=== PATIENT | female | born 1995 | race Caucasian/White ===

== ENCOUNTER 2022-03-13 23:53 | Inpatient (IN) | payer OTHER, SELFPAY ==
[2022-03-14] VITALS (183 sets, daily range): BP systolic 89–145; BP diastolic 55–116; PULSE 55–152; RESP 18; TEMP 36.3–36.8; O2SAT 83–100; BMI 29.7
--- NOTE | 2022-03-14 00:19 | LDADM ---
This patient, Irena Ayala, was admitted to Labor/Delivery/Recovery 105 on 03/13/22 at 23:53. Plans for labor, pain management and were discussed with patient. Patient/family oriented to hospital policies and general routines including ID bracelet, bed and alarms, visiting hours, pain management, procedures, bathroom and other care routines, personal items, smoking policy, room service/diet and guest tray routines, security routines, and visiting hours. Patient/Family are encouraged to report perceived risks to care and to ask questions if they do not understand what they are told or what they should do. See OBIX for further documentation.
[2022-03-14] MEDS: ONDANSETRON INJ 4 MG/2 ML VIAL IV PUSH ×2 (00:39→09:07)
[2022-03-14] MEDS: AMPICILLIN 2 GM/NS 100 ML 2 GM/100 ML BAG IVPB (00:40)
[2022-03-14] MEDS: LACTATED RINGERS 1,000 ML 125 ML IV CONT ×3 (00:40→05:13)
[2022-03-14 00:41] LABS: Basophils Percent Auto 0.3 % (0.2-1.2); Eosinophils Percent Auto 0.2 % (0-4.4); Hematocrit 36.2 % (37.0-47.0); Hemoglobin 12.7 g/dL (12.0-15.0); Immature Granulocyte Absolute 0.12 K/mm3 (0.00-0.031); Immature Granulocyte Percent A 0.8 % (0-0.5); Lymphocytes Percent Auto 12.8 % (18.3-44.2); Mean Corpuscular HGB Conc 35.1 g/dl (32-36); Mean Corpuscular Hemoglobin 30.5 pg (26-34); Mean Corpuscular Volume 86.8 fl (80-100); Mean Platelet Volume 10.8 fl (7.4-10.4); Monocytes Percent Auto 6.7 % (2.6-8.5); Neutrophils Absolute Auto 11.8 K/mm3 (1.3-6.7); Neutrophils Percent Auto 79.2 % (45.5-73.1); Platelet Count Result 297 k/mm3 (150-375); Red Blood Count 4.17 M/mm3 (4.2-5.4); Red Cell Distribution Width 13.6 % (11.5-14.5); White Blood Count 14.9 K/mm3 (4.5-10.0)
--- NOTE | 2022-03-14 01:07 | PM.IMHP ---
H&P: HPI History of Present Illness Date/Time: 03/14/22 01:07 Chief Complaint: Leakage of fluid Narrative: 27 y/o G1 at 38 6/7 weeks who had leakage of brown fluid at 10:30 pm, with subsequent contractions and vomiting. RomPlus pos. GBS bacteruria. Review of Systems Review of Systems: All systems reviewed & are unremarkable except as noted in HPI and below PMFSH Past Medical History Medical History Anxiety Family History Family History Other Patient denies significant medical history Social History Social History Smoking status: Never smoker Second hand tobacco smoke exposure: No Substance use: never Lack of Transportation: No Lack of Food: Never True Current Housing: I Have Housing Concerned About Future Housing: No Difficulty Paying Gas/Electric Bills: No Difficulty Paying for Meds: No Currently Unemployed: No Education: Associate Degree Difficulty w/ Childcare or Family Care: No Spiritual care concerns: No Meds Home Medications and Allergies Home Medications Medication Instructions Recorded Confirmed Type ferrous sulfate 325 mg (65 mg 325 mg PO DAILY 02/22/22 02/22/22 History iron) tablet fluoxetine 20 mg tablet 20 mg PO DAILY 02/22/22 02/22/22 History ondansetron HCl 4 mg tablet 4 mg PO Q6H PRN Nausea 02/22/22 02/22/22 History prenat.vits,dottie,ngd-ycfk-arytj 2 tablet PO DAILY 02/22/22 02/22/22 History Allergies Allergy/AdvReac Type Severity Reaction Status Date / Time No Known Allergies Allergy Verified 02/22/22 13:40 Vital Signs Vital Signs - 24 hr 03/14/22 00:17 03/14/22 00:31 03/14/22 00:46 Pulse Rate 76 78 64 Blood Pressure 124/81 110/90 110/88 Oxygen Delivery 03/14/22 01:01 03/14/22 00:18 Pulse Rate 69 Blood Pressure 145/89 H Oxygen Delivery Room Air Exam Const: Orientation/consciousness: patient oriented x3 Other: Well-developed, well-nourished female in no acute distress. Neck: Thyroid: thyroid normal Lymphatic: no lymphadenopathy noted (in neck, axilla or inguinal nodes) Resp: Effort & Inspection: normal respiratory effort Auscultation: clear to auscultation bilaterally Cardio: Rate: regular rate Rhythm: regular rhythm Heart sounds: S1 normal heart sound present and S2 normal heart sound present GI: Other: ABD: Soft, nontender, gravid. NST 150 reactive, but with some decelerations with vomiting. : General: Yes no CVA tenderness Other: Cervix 1 cm on admission, now 3/100/-2. AROM forebag with meconium-stained fluid. Vertex. IUPC placed. Back/Spine/Pelvis: Back: no CVA tenderness Skin: General skin exam: normal color and no rashes or lesions noted Neuro: General: patient oriented x3 Extrem: Other: Extremities: nontender with no edema Psych: Mental Status: mental status grossly normal Affect: normal affect H&P: Results Labs Labs: Short CBC 03/14/22 Range/Units 00:27 WBC 14.9 H (4.5-10.0) K/mm3 Hgb 12.7 (12.0-15.0) g/dL Hct 36.2 L (37.0-47.0) % Plt Count 297 (150-375) k/mm3 Assessment and Plan Assessment and plan (1) Active labor at term: Status: Acute Assessment and Plan: A: IUP at 38 6/7 weeks with labor, meconium-stained fluid, GBS bacteruria. P: Ampicillin. IUPC placed. Expectant management. (2) GBS bacteriuria: Code(s): R82.71 - Bacteriuria Status: Acute
--- NOTE | 2022-03-14 01:39 | WPDANESEPP ---
Anes - Eval Pre Procedure Procedure: labor epidural Date/Time: 03/14/22 01:39 Pre Op Diagnosis: Contractions leaking Patient Data Age: 27 Gender: F Height: 1.55 m Weight: 71.5 kg Last Vital Signs Pulse 67 03/14/22 01:31 BP 119/98 H 03/14/22 01:31 O2 Del Method Room Air 03/14/22 00:18 Allergies Allergy/AdvReac Type Severity Reaction Status Date / Time No Known Allergies Allergy Verified 02/22/22 13:40 Home Medications Medication Instructions Recorded Confirmed Type ferrous sulfate 325 mg (65 mg 325 mg PO DAILY 02/22/22 02/22/22 History iron) tablet fluoxetine 20 mg tablet 20 mg PO DAILY 02/22/22 02/22/22 History ondansetron HCl 4 mg tablet 4 mg PO Q6H PRN Nausea 02/22/22 02/22/22 History prenat.vits,dottie,wed-zpoy-guffe 2 tablet PO DAILY 02/22/22 02/22/22 History Laboratory Tests 03/14/22 03/14/22 03/14/22 00:27 00:27 00:27 WBC 14.9 K/mm3 H K/mm3 (4.5-10.0) RBC 4.17 M/mm3 L M/mm3 (4.2-5.4) Hgb 12.7 g/dL g/dL (12.0-15.0) Hct 36.2 % L % (37.0-47.0) MCV 86.8 fl fl (80-100) MCH 30.5 pg pg (26-34) MCHC 35.1 g/dl g/dl (32-36) RDW 13.6 % % (11.5-14.5) Plt Count 297 k/mm3 k/mm3 (150-375) MPV 10.8 fl H fl (7.4-10.4) Immature Gran % (Auto) 0.8 % H % (0-0.5) Neut % (Auto) 79.2 % H % (45.5-73.1) Lymph % (Auto) 12.8 % L % (18.3-44.2) [place] % (Auto) 6.7 % % (2.6-8.5) Eos % (Auto) 0.2 % % (0-4.4) Baso % (Auto) 0.3 % % (0.2-1.2) Lymph # (Auto) 1.90 K/mm3 K/mm3 (0.9-3.2) [place] # (Auto) 1.0 K/mm3 H K/mm3 (0.1-0.6) Eos # (Auto) 0.0 K/mm3 K/mm3 (0-0.3) Baso # (Auto) 0.0 K/mm3 K/mm3 (0.0-0.1) Abs Immat Gran (auto) 0.12 K/mm3 H K/mm3 (0.00-0.031) Absolute Neuts (auto) 11.8 K/mm3 H K/mm3 (1.3-6.7) Absolute Nucleated RBC 0.0 K/mm3 K/mm3 (0.0-0.012) Nucleated RBC % 0.0 % % (0.0-0.2) RPR Pending Blood Type B Positive Antibody Screen Negative Patient hx anesthesia problems: none Family hx anesthesia problems: none Results Review: All pre-operative results and documents have been reviewed as part of the pre-operative evaluation. [facility] Past Medical History Medical History Anxiety Family History Family History Other Patient denies significant medical history Social History Social History Smoking status: Never smoker Second hand tobacco smoke exposure: No Substance use: never Lack of Transportation: No Lack of Food: Never True Current Housing: I Have Housing Concerned About Future Housing: No Difficulty Paying Gas/Electric Bills: No Difficulty Paying for Meds: No Currently Unemployed: No Education: Associate Degree Difficulty w/ Childcare or Family Care: No Spiritual care concerns: No Exam Day of Procedure 03/14/22 01:39 Patient weight: overweight Heart: regular rate and rhythm Lungs: normal air movement Airway: Mallampati scale Neurological: alert and oriented
[2022-03-14 04:22] LABS: Amphetamine Screen Urine Negative (Negative); Barbiturate Screen Urine Negative (Negative); Benzodiazepines Screen Urine Negative (Negative); Cannabinoid Screen Urine Positive (Negative); Cocaine Screen Urine Negative (Negative); Methadone Screen Urine Negative (Negative); Opiate Screen Urine Negative (Negative); Phencyclidine Screen Urine Negative (Negative)
[2022-03-14] MEDS: AMPICILLIN 1 GM/NS 50 ML 1 GM/50 ML BAG IVPB ×2 (05:13→09:02)
[2022-03-14 06:37] LABS: Rapid Plasma Reagin Non-Reactive (NonReactive)
[2022-03-14] MEDS: OXYTOCIN 30 UNITS/NS 500 ML 30 UNITS/500 ML BAG IV CONT (07:56)
--- NOTE | 2022-03-14 08:12 | PM.OBPNLAB ---
Pain Control Date/time seen: 03/14/22 08:12 Comfortable with epidural. AVSS NST reactive TOCO: contractions every 3-4 min Cervix 5/-1 Augment labor with oxytocin as needed. Continue labor.
[2022-03-14] MEDS: FAMOTIDINE 20 MG/2 ML VIAL IV PUSH (11:34)
--- NOTE | 2022-03-14 14:52 | P.PCNOB_ITS ---
OB - Delivery Note Procedure Delivery date: 03/14/22 Procedure: Vacuum assisted vaginal delivery Events: Positive Group B Strep (GBS) Induction method: None Delivery augmentation: Pitocin Delivery monitor: External FHT, External Uterine and Internal Uterine Route of delivery: vacuum extraction Laceration Description: Perineal - 2nd Degree Delivery repair: vicryl (3-0) Quantitative Blood Loss (ml): 420 Anesthesia type: Epidural Disposition: PACU Complications: None Narrative: 27 y/o G1 at 38 6/7 weeks gestation who presented to the hospital with leakage of fluid. SROM with meconium-stained fluid was noted. She received ampicillin IV for GBS bacteruria. She received an epidural for pain control. Oxytocin was administered intravenously for augmentation of labor. Her labor progressed and her cervix dilated completely. She pushed and brought the vertex to the +2 of 3 station, in persistent ROP position. After more than two hours of pushing, with minimal additional descent, I offered vacuum assisted vaginal delivery vs . We reviewed risks / benefits / alternatives, and she opted to pursue VAVD. The Kiwi vacuum suction cup was applied to the vertex using the Dreifingergriff. The first device was unable to attain proper suction and was discarded. A second device was found to function normally. Over three contractions, and with one pop-off, the infant's head was gently flexed while the patient pushed with good effort. The head descended, rotated to the KELLEN position and delivered to the perineum. Delivery of the body followed. The nose and mouth were bulb suctioned. After a delay, the cord was clamped and cut. The was handed off the field. Cord blood was collected. The placenta delivered spontaneously and was grossly normal in appearance. The usual 3 vessel cord was noted. A second degree midline perineal laceration was sustained. This was reapproximated using 3 0 Vicryl in the usual layered fashion. Excellent hemostasis resulted as did excellent reapproximation of the normal anatomy. Needle and instrument counts were correct. The patient was taken to recovery room in stable condition. The went to the nursery in stable condition. I was present and scrubbed for the entire delivery. [place] Baby Date of : 03/14/22 Time of : 14:40 Weeks of gestation at delivery: 38 gender: Male Weight (pounds): 6 Weight (ounces): 14 presentation: vertex position: Right Occiput Posterior Placenta delivery description: Spontaneous and Normal Configuration Cord Vessel Description: 3 Vessels and Delayed Cord Clamping score one minute: 6 score five minutes: 9
[2022-03-14] MEDS: BENZOCAINE 20% AER SPR (*SP) 56 GM CAN 1 SPRAY TOPICAL (17:17)
[2022-03-14] MEDS: WITCH HAZEL 40 PADS 1 PAD TOPICAL (17:17)
--- NOTE | 2022-03-14 19:13 | PC.NURSE ---
Patient transferred to post room #291 per wheelchair from labor and delivery. Support person present. Oriented to unit, room, information board, rooming in, admission packet and security measures. Patient verbalizes understanding.
--- NOTE | 2022-03-14 20:52 | PM.OBDSVD ---
DS: Admitting Diagnosis Discharge Date 03/13/22 Admitting Diagnosis IUP at 38 6/7 weeks SROM GBS bacteruria DS: Discharge Diagnosis Discharge Diagnosis (1) GBS bacteriuria: Code(s): R82.71 - Bacteriuria Status: Acute (2) Active labor at term: Status: Acute OB - DS: Summary OB Procedures : None OB Procedures Intrapartum: Vacuum extraction OB Procedures: : None Time Spent with Patient Time attestation: Total time spent providing and/or coordinating discharge services: DS: Data Data Completed and Pending Labs on day of discharge: Labs from last 24 hours 03/14/22 03/14/22 03/14/22 03:51 00:27 00:27 WBC RBC Hgb Hct MCV MCH MCHC RDW Plt Count MPV Immature Gran % (Auto) Neut % (Auto) Lymph % (Auto) [place] % (Auto) Eos % (Auto) Baso % (Auto) Lymph # (Auto) [place] # (Auto) Eos # (Auto) Baso # (Auto) Abs Immat Gran (auto) Absolute Neuts (auto) Absolute Nucleated RBC Nucleated RBC % Urine Opiates Screen Negative Urine Methadone Screen Negative Ur Barbiturates Screen Negative Ur Phencyclidine Scrn Negative Ur Amphetamine Screen Negative U Benzodiazepines Scrn Negative Urine Cocaine Screen Negative U Cannabinoids Screen Positive A RPR Non-reactive Blood Type B Positive Antibody Screen Negative 03/14/22 00:27 WBC 14.9 H RBC 4.17 L Hgb 12.7 Hct 36.2 L MCV 86.8 MCH 30.5 MCHC 35.1 RDW 13.6 Plt Count 297 MPV 10.8 H Immature Gran % (Auto) 0.8 H Neut % (Auto) 79.2 H Lymph % (Auto) 12.8 L [place] % (Auto) 6.7 Eos % (Auto) 0.2 Baso % (Auto) 0.3 Lymph # (Auto) 1.90 [place] # (Auto) 1.0 H Eos # (Auto) 0.0 Baso # (Auto) 0.0 Abs Immat Gran (auto) 0.12 H Absolute Neuts (auto) 11.8 H Absolute Nucleated RBC 0.0 Nucleated RBC % 0.0 Urine Opiates Screen Urine Methadone Screen Ur Barbiturates Screen Ur Phencyclidine Scrn Ur Amphetamine Screen U Benzodiazepines Scrn Urine Cocaine Screen U Cannabinoids Screen RPR Blood Type Antibody Screen Discharge Plan Discharge Attending physician on discharge: Duc Ingram Consulting providers: Jennifer Gusman ; Xochitl Marcano Discharging Clinician: Duc Ingram Patient Disposition: Home, Self-Care Activity: pelvic rest Diet: regular Discharge Instructions: Education: Mom and Baby Guide Given to: Mother Follow-Up: Call your delivering provider's office for an appointment to be seen in: 6 Weeks Mom and baby should come to the [facility] for the follow-up appointment. Appointment Date/Time: March 17, 2022 at 9:00 am What to expect at your follow-up visit: Blood Pressure Check Physical Assessment Call [phone] if you are unable to keep your appointment time. BREAST CARE: * Wear a snug supportive bra. * For engorgement discomfort: Breast Feeding: * Apply warm moist washcloths * Express milk as needed to relieve engorgement * Wear loose clothing Bottle Feeding: * May apply ice packs * For sore nipples: * Identify correct latch-on * Apply warm moist washcloths before and after nursing * Air dry nipples after nursing * May apply Lansinoh cream to nipples EPISIOTOMY/PERINEAL CARE: * Until bleeding stops, use your meghan bottle after urinating * Change your pad frequently throughout the day * You may take sitz baths several times a day (fill your bathtub with warm water and soak for 20 minutes.) Do NOT bathe in the water * No tub baths until seen by your physician - You may shower ACTIVITY: * Rest as much as possible. * Do not exercise or lift anything heavier than your baby (such as laundry or other children.) * Avoid stairs or driving as much as possible. * Do not put anything into the vagina. No douching, tampons, or sexual activity until seen by physicia
[2022-03-15] MEDS: IBUPROFEN 600 MG TABLET PO ×2 (03:44→12:33)
[2022-03-15 03:57] VITALS: BP 102/62; PULSE 78; RESP 17; TEMP 36.6; O2SAT 98
--- NOTE | 2022-03-15 06:10 | PM.OBPNVD ---
OB - PN: Subj Subjective Date/time seen: 03/15/22 06:10 Patient comments: no complaints and pain well controlled baby status: doing well OB - PN: Obj Data Labs CBC & Chem 7: 03/15/22 03:41 Labs: Laboratory Results - last 24 hr 03/14/22 03/15/22 00:27 03:41 Hgb 11.0 L Hct 33.0 L RPR Non-reactive OB - PN A/P Plan day: 1 Plan: routine care Time Spent With Patient Time: Total time spent is greater than 50% in coordination of care (as documented) at patient's floor/unit and/or counseling patient: Time with patient: less than 15 minutes Exam Const: General: cooperative, healthy appearing and comfortable Orientation/consciousness: oriented to person, oriented to place and oriented to time HENMT: Head: normal to inspection Resp: Effort & Inspection: normal respiratory effort GI: Inspection: normal to inspection (Fundus firm below the umbilicus)
[2022-03-15] MEDS: MULTIVIT/MIN/PREN/FOL AC/IRON TABLET 1 TAB PO (07:36)
[2022-03-15] MEDS: DOCUSATE SODIUM 100 MG CAPSULE PO (07:36)
[2022-03-15] MEDS: FLUoxetine HCL 20 MG CAPSULE PO (07:36)
[2022-03-15 08:00] VITALS: BP 109/69; PULSE 74; RESP 16; TEMP 36.8; O2SAT 97
--- NOTE | 2022-03-15 10:50 | WPDANLDPN2 ---
Anes-Prog Note L&D Date/Time: 03/15/22 10:50 Comfortable throughout: labor and delivery Neuraxial method: epidural Epidural/Spinal procedure site: clean & non-tender Neuro status: Neuro function grossly intact. Cardiovascular status: normal Respiratory status: normal Airway patency: baseline Mental status: baseline Post-Op hydration status: normal Vital Signs: Last Vital Signs Temp 36.8 C 03/15/22 08:00 Pulse 74 03/15/22 08:00 Resp 16 03/15/22 08:00 BP 109/69 03/15/22 08:00 Pulse Ox 97 03/15/22 08:00 O2 Del Method Room Air 03/15/22 07:44 Pain score (VAS): 05/01 I/O: Intake & Output 03/14/22 03/15/22 03/15/22 23:59 07:59 15:59 Intake Total 0 Balance 0 Post-procedural complaints: none Patient feedback: Patient satisfied with anesthetic care.
[2022-03-15 11:28] VITALS: BP 119/73; PULSE 83; RESP 18; TEMP 36.4; O2SAT 99
[2022-03-15] MEDS: ACETAMINOPHEN 325 MG TABLET 650 MG PO (12:34)
[2022-03-15 15:53] VITALS: BP 110/71; PULSE 76; RESP 18; TEMP 36.6; O2SAT 96
[2022-03-15 19:33] VITALS: BP 121/85; PULSE 73; RESP 18; TEMP 36.9; O2SAT 99
--- NOTE | 2022-03-16 05:37 | PC.NURSE ---
Mariaa Martines RN charted on this patient from 1800 03/15/22 - 0600 03/16/22
--- NOTE | 2022-03-16 06:24 | P.PNOB_ITS ---
OB - PN: Subj Subjective Date/time seen: 03/16/22 06:24 Patient comments: no complaints and pain well controlled baby status: doing well OB - PN: Obj Data Labs CBC & Chem 7: 03/15/22 03:41 OB - PN A/P Plan day: 2 Plan: routine care, discharge home and follow up 6 weeks Time Spent With Patient Time: Total time spent is greater than 50% in coordination of care (as documented) at patient's floor/unit and/or counseling patient: Time with patient: less than 15 minutes Exam 2 Const: General: cooperative, healthy appearing, comfortable and well groomed Orientation/consciousness: oriented to person, oriented to place and oriented to time Resp: Effort & Inspection: normal respiratory effort GI: Inspection: normal to inspection (Fundus firm below the umbilicus)
[2022-03-16 08:20] VITALS: BP 111/82; PULSE 63; RESP 18; TEMP 36.6; O2SAT 98
[2022-03-16] MEDS: ACETAMINOPHEN 325 MG TABLET 650 MG PO (08:45)
[2022-03-16] MEDS: FLUoxetine HCL 20 MG CAPSULE PO (08:45)
[2022-03-16] MEDS: MULTIVIT/MIN/PREN/FOL AC/IRON TABLET 1 TAB PO (08:45)
[2022-03-16] MEDS: DOCUSATE SODIUM 100 MG CAPSULE PO (08:45)
--- NOTE | 2022-03-16 11:48 | PC.NURSE ---
Patient viewed the discharge video Mother & Baby Care, The First Two Weeks . Patient was given the opportunity and encouraged to ask questions. Patient verbalized understanding of information shared and has been given the mother/baby guide for home reference.
[2022-03-17 09:30] VITALS: BP 116/81; PULSE 65; RESP 20; TEMP 37.2; O2SAT 99
== END 2022-03-16 13:15 | disposition home or self-care (01) | DRG 807 ==
LOC: ANHLDR 03-14 09:04 → ANHOB2 03-14 20:54 → ANHLDR 03-19 11:22 → ANHOB2 03-19 11:22
PROVIDERS: Admitting Provider Obstetrics & Gynecology; Visit Provider Obstetrics & Gynecology
DX: O99.824 Streptococcus B carrier state complicating childbirth (principal); Z37.0 Single live birth; Z3A.38 38 weeks gestation of pregnancy; O36.8330 Maternal care for abnormalities of the fetal heart rate or rhythm, third trimester, not applicable or unspecified; O70.1 Second degree perineal laceration during delivery; O77.0 Labor and delivery complicated by meconium in amniotic fluid; O99.344 Other mental disorders complicating childbirth; F41.9 Anxiety disorder, unspecified
CPT/HCPCS: 36415; 80307; 84112; 85014; 85018; 85025; 86592; 86850; 86900; 86901; 88307; A9270; J0290; J2405; J2590; J2795; J7120

== ENCOUNTER 2024-08-11 03:43 | Day surgery (SDC) | payer OTHER, SELFPAY ==
[2024-08-07 14:06] VITALS: BMI 25.0
--- OUTSIDE RECORDS SUMMARY | 2024-08-11 03:46 | XMS_ITS | Encounter Summary ---
Author Organization [facility] Address [address] [place] [address] Care Team Providers Care Log Chipper Name Role Phone Unavailable Primary Care Provider Unavailabl e Encounter Details Date Type Department Care Team (Late st Contact Info) Description 05/13/2023 Initial consult [facility] [address] [place] [address] [phone] Vanessa Bridges MD [address] [place] [phone] Social History Tobacco Use Types Packs/Day Years Used Date Smoking Tobacco: Never Smokeless Tobacco: Never Alcohol Use Standard Drinks/Week Comments No 0 (1 standard drink = 0.6 oz pur e alcohol) AUDIT-C Answer Date Recorded Q1: How often do you have a drink containing alcohol? Never 03/15/2023 Q2: How many drinks containi ng alcohol do you have on a typical day when you are drinking? Patient does not drink Q3: How often do you have si x or more drinks on one occasion? Never 03/15/2023 Overall Financial Resource Strain (CARDIA) Answe r Date Recorded How hard is it for you to pa y for the very basics like food, housing, medical care, and heating? Not very hard 03/20/2023 [facility] [facility] - Occupational Stress Questionnaire Answer Date Recorded Do you feel stress - tense, restless, nervous, or anxious, or unable to sleep at night because your mind is troubled all the time - these days? Only a little 03/20/2023 Hunger Vital Sign Answer Date Recorded Within the past 12 months, y ou worried that your food would run out before you got the money to buy more. Never true 03/20/20 23 Within the past 12 months, t he food you bought just didn't last and you didn't have money to get more. Never true 03/20/2023 PRAPARE - Transportation Answer Date Re corded In the past 12 months, has l ack of transportation kept you from medical appointments or from getting medications? No 02/21 In the past 12 months, has l ack of transportation kept you from meetings, work, or from getting things needed for daily living? No 03/20/2023 Housing Stability Vital Sign Answer Steve e Recorded In the last 12 months, was t here a time when you were not able to pay the mortgage or rent on time? No 03/20/2023 In the last 12 months, how many places have you lived? 1 03/20/2023 In the last 12 months, was t here a time when you did not have a steady place to sleep or slept in a senior living (including now)? No 03/20/2023 [place] Depression Scale Answer Date Recorded [place] Depression Scale Total 5 05/06/2023 The thought of harming myself has occurred to me . 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
--- OUTSIDE RECORDS SUMMARY | 2024-08-11 03:46 | XMS_ITS | Continuity of Care Document ---
Author Organization [facility] Address [address] [place] [id number] Phone Care Team Providers Care Garageman Name Role Phone Ed Billy Unavailable Unavailable Advance Directives Directive Yes / No Effective Date File Name No Information Encounters Encounter Description Practice Location Reason(s) For Visit Diagnoses Date Provider Providers Copied on Encounter [facility], [address] [place] [address], [facility], tel:[phone] *[facility] No Information Wenceslao Ward. [address] [place] [address], [facility], . tel:[phone] Family History Family Member Type Diagnosis Age At Onset No Information Payers Payer name Insurance type Covered green party ID Authoriza tion(s) No Information Social History Type Description Quantity Date Captured Comments Sex Unknown Smoking Status No Information Chief Complaint And Reason For Visit No Information Reason For Referral Reason For Referral No Information History Of Present Illness Encounter Date Complaint History Of Prese nt Illness No Information Functional Status Date Functional Assessmen t No Information Instructions Date Instruction Additional Infor mation No Information Assessments Type Assessment Date No Information Patient Care Teams Name Effective Dates (start - stop) Status Members No Information
--- OUTSIDE RECORDS SUMMARY | 2024-08-11 03:46 | XMS_ITS | Clinical Summary ---
Author Organization [facility] Address [address] [place] [address] Care Team Providers Care Despatch Clerk Name Role Phone No, Physician Primary Care Provider [phone] Allergies Active Allergy Reactions Criticality Noted Date Comments Amoxicillin-Pot Clavulanate Diarrhea Low 10/05/19 23 Medications levonorgestreL-eth inyl estrad (Levora-28) 0.15-0.03 mg per tabletIndications: Encounter for prescription of oral contraceptives Take 1 tablet by mouth daily 28 tablet 3 1 Active escitalopram (LEXAPRO) 10 mg tablet Take 1 tablet (10 mg total) by mouth daily Active meclizine (ANTIVERT) 12.5 mg tablet Take 1 tablet (12.5 mg total) by mouth 3 (three) times a day as needed for dizziness Active Active Problems No known active problems Immunizations Immunization Administration Dates Next Due DTaP 12/03/2001, 9,01/19/1998,10/18,1997 HPV, Quadrivalent 12/19/2010,08/14/2010,02/08/20 10 Hep B, Unspecified 1997,1997, 997 Hib (PRP-T) 08/03/1998, 8,1997,07/14 IPV 12/03/2001,1997,1997 Influenza, Quadrivalent, Spl it, Preservative Free, Intramuscular 01/25/2014 MMR 12/03/2001,04/29/1998 OPV 04/29/1998 Tdap 08/16/2020,11/01/2008 Varicella 05/07/2013,12/03/2001 Social History Tobacco Use Types Packs/Day Years Used Date Smoking Tobacco: Never Smokeless Tobacco: Never Alcohol Use Standard Drinks/Week Comments Yes 0 (1 standard drink = 0.6 oz pur e alcohol) Personal Safety Answer Date Recorded Getting School Help Needed Not on file 11/02 Comments No Sex and Gender Information Value Date Recorded Sex Assigned at Not on file Legal Sex Female 4:29 AM POLICY ADVISOR Gender Identity Female 03/30/2022 5:47 PM POLICY ADVISOR Sexual Orientation Straight 12/28/2020 9: 21 AM CDT 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 Not on file Not on daniel e Obstetrics History Para Term AB IAB SAB Ectopic Multiple Livin g Live Births 0 0 0 0 0 0 0 0 0 0 0 Last Filed Vital Signs Vital Sign Reading Time Taken Comments Blood Pressure 106/62 11/16/2023 10:22 AM CDT Pulse 90 11/16/2023 10:22 AM CDT Temperature 37 C (98.6 F) 11/16/2023 10:22 AM CDT Respiratory Rate 20 11/16/2023 10:22 AM CDT Oxygen Saturation 98% 11/16/2023 10:22 AM CDT Inhaled Oxygen Concentration - - Weight 53.5 kg (118 lb) 11/16/2023 10:22 AM CDT Height 154.9 cm (5' 1 ) 11/16/2023 10:22 AM CDT Body Mass Index 22.3 11/16/2023 10:22 AM CDT Plan of Treatment Health Maintenance Due Date Last Done Comments Cervical Cancer Screening 1997 Depression Screening 1997 Hepatitis C Screening 1997 Regular Well Visit/Exam 18-64 2015 Covid-19 Vaccine ( season) 2023 06/14/2020, 05/17/2020 Influenza Vaccine (#1) 2023 01/25/2014 DTaP/Tdap/Td Vaccine (8 - Td or Tdap) 08/16/2030 08/16/2020, 11/01/2008, 12/03/2001, Additional history exists Hepatitis B Screening Completed 1997 , 1997, 1997 HPV Vaccines Completed 12/19/2010, 07/22, 02/07/2010 Varicella Vaccines Completed 05/07/2013, 12/03/2001 Pneumococcal vaccine <65 Aged Out No longer eligible based on patient's age to complete this topic Insurance [facility] CHOICE PLUS [facility] HMO/PPO Address: [address] [address] [place] [address] [facility] Care Teams Despatch Clerk Relationship Specialty Start Date End Date No, Physician PCP - General 02/04/19
--- OUTSIDE RECORDS SUMMARY | 2024-08-11 03:47 | XMS_ITS | Clinical Summary ---
Author Organization [facility] [employer] Address [address] [place] [address] Care Team Providers Care Consumer Safety Officer Name Role Phone Unavailable Primary Care Provider Unavailabl e Source Comments [facility],non-owned Affiliates and Associated Physician Practices is amultiple site organization consisting of ambulatory clinics and hospital sitesin [place], [place], [place] and [place]. This disclosure is being madepursuant to the Care Everywhere program and may not contain all information available regarding this patient. Last updated 18.[facility] [employer] Allergies No known active allergies Medications * Be aware that medications may not be up to date on this document. Alwaysverify current medications with the patient. escitalopram (Lexapro) 10 MG tablet Take 1 (one) tablet by mouth once daily Active ondansetron (Zofran) 4 MG tablet Take 1 (one) tablet by mouth every 6 hours as needed for Nausea/Vomiti ng Active Multiple Vitamins-Minera ls (WOMENS MULTI VITAMIN & MINERAL PO) Active acetaminophen (Tylenol) 500 MG capsule Take 2 (two) capsules by mouth every 6 hours as needed for Fever or Pain 50 capsule 1 07/25/2023 Active docusate sodium (Colace) 100 MG capsule Take 1 (one) capsule by mouth once daily 50 capsule 1 07/25/2023 Active ibuprofen (Motrin) 600 MG tablet Take 1 (one) tablet by mouth every 6 hours as needed for Pain 50 tablet 1 07/25/2023 Active ferrous sulfate 325 (65 FE) MG tablet Take 1 (one) tablet by mouth once daily 100 tablet 1 07/25/2023 Active plus iron (Natatab) 29-1 MG tablet Take 1 (one) tablet by mouth once daily 50 tablet 1 07/25/2023 Active Active Problems Problem Noted Date Diagnosed Date Anxiety 07/29/2023 Supervision of high risk , antepartum 0 07/23/2023 cardiac anomaly compli cating , antepartum, single gestation 03/25/2023 Resolved Problems Problem Noted Date Diagnosed Date Resolved Date Depression screen-Initial at PENITENTIARY 03/28/2023 03/28/2023 07/25/2023 Overview (07/08/2023): 03/28/2023 Irena Ayala was screened for depression using the [place] Depression Scale (EPDS) at her [facility] initial evaluation on 03/28/2023. Her initial score at baseline was 5. Based off of her score of 5, Irena does not warrant follow up. Patient will continue to be screened throughout , at intervals no closer than two weeks, for continued surveillance and early identification of depression until delivery. Patient reports mental health history. Diagnoses include anxiety. 05/06/2023-Follow up EPDS score=5. 06/10/2023-Follow up EPDS score=7. 07/08/2023-Follow up EPDS score=3. PENITENTIARY- abnormality in pre gnancy-complex heart defect 03/20/2023 07/25/2023 Overview (07/22/2023): Images from the original note were not included. PENITENTIARY PATIENT--PLEASE CALL [phone] (ex 2) IF TRIAGED OR ADMITTED Care Provider: Dr. Duc Ingram [facility] consultants involved: Nurse Navigator-Promise Baer; MFM-Drs. Rodrigez/Ze; Pediatric Cardiology-Dr. Thakur; Neonatology-Dr. Woods; CT Surgery-Dr. High; Genetic Counselor-Magaly Mejia; Footprints-Dr. 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: Yes Rapid Transport to [facility]: No PGE: Yes, start at 0.03mcg/kg/min Per neonatology- 1. Recommend delivery at [facility], or tertiary care facility. 2. Draw HUNTER TRAPPER from cord blood at delivery 3. Neonatology attending will be expected to be present at delivery. 4. will need to be transferred to [facility] a. Transport team should be notified after delivery b. If Before, does patient need to follow Rapid Transport Pathway? No c. Is Nitric Oxide indicated? No 5. Other services to notify prior to delivery: Pediatric Cardiology 6. Special treatments required: has what will be considered a ductal dependent anatomy so PGE will be started 7. Rest of Cardiac Planning per Pediatric Cardiology 8. Anticipated delivery room complications: none anticipated 9. Umbilical lines: Yes If yes, to be placed at [facility] or ? At [facility] prior to transfer Custom Harvester: Dr. Jennifer Ingram Genetics note: genetic diagnostic testing was not performed. Patient desires microarray to be performed on cord blood at the time of delivery. Please draw at least 3cc cord blood in green top sodium heparin tube. NICU staff to place order in baby's chart. Sample to be sent to reference lab for sendout. Please request Genetics consult postnatally if clinically indicated by calling the Genetics office at [phone] prior to ordering additional genetic studies. Visual Aid Expert Concerns: 03/28/2023-Patient with history of anxiety-does take medication Care plan based on evaluation and is subject to change based on assessment. See Images or Cardiac under Chart Review for US/ ECHO/ MRI reports. Immunizations Immunization Administration Dates Next Due MMR 07/25/2023() TDAP (7yrs+) 07/25/2023() Family History * Patient is adopted Medical History Relation Name Comments Negative Family History Other Cancer - Breast Neg Hx Cancer - Colon Neg Hx Cancer - Ovarian Neg Hx Cancer - Uterine Neg Hx Other - Defects Neg Hx Sudd. <30 Neg Hx Relation Name Status Comments Other Social History Tobacco Use Types Packs/Day Years Used Date Smoking Tobacco: Never Smokeless Tobacco: Never Alcohol Use Standard Drinks/Week Comments No 0 (1 standard drink = 0.6 oz pur e alcohol) AUDIT-C Answer Date Recorded Q1: How often do you have a drink containing alcohol? Never 07/23/2023 Q2: How many drinks containi ng alcohol do you have on a typical day when you are drinking? Patient does not drink Q3: How often do you have si x or more drinks on one occasion? Never 07/23/2023 Overall Financial Resource Strain (CARDIA) Answe r Date Recorded How hard is it for you to pa y for the very basics like food, housing, medical care, and heating? Not very hard 07/23/2023 [facility] Occupat ional Health - Occupational Stress Questionnaire Answer Date Recorded Do you feel stress - tense, restless, nervous, or anxious, or unable to sleep at night because your mind is troubled all the time - these days? Only a little 07/23/2023 Hunger Vital Sign Answer Date Recorded Within the past 12 months, y ou worried that your food would run out before you got the money to buy more. Never true 07/23/19 24 Within the past 12 months, t he food you bought just didn't last and you didn't have money to get more. Never true 07/23/2023 PRAPARE - Transportation Answer Date Re corded In the past 12 months, has l ack of transportation kept you from medical appointments or from getting medications? No 05/2023 In the past 12 months, has l ack of transportation kept you from meetings, work, or from getting things needed for daily living? No 07/23/2023 Housing Stability Vital Sign Answer Steve e Recorded In the last 12 months, was t here a time when you were not able to pay the mortgage or rent on time? No 07/23/2023 In the last 12 months, how many places have you lived? 1 07/23/2023 In the last 12 months, was t here a time when you did not have a steady place to sleep or slept in a mcc (including now)? No 07/23/2023 [place] Depression Scale Answer Date Recorded [place] Depression Scale Total 6 07/29/2023 The thought of harming myself has occurred to me . 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 Sex Female 4:22 AM HAT FINISHER Gender Identity Not on file Sexual Orientation Not on file Last Filed Vital Signs Vital Sign Reading Time Taken Comments Blood Pressure 112/78 07/29/2023 11:18 AM CDT Pulse 76 07/29/2023 11:18 AM CDT Temperature 37 C (98.6 F) 07/29/2023 11:18 AM CDT Respiratory Rate 16 07/29/2023 11:18 AM CDT Oxygen Saturation 97% 07/29/2023 11:18 AM CDT Inhaled Oxygen Concentration - - Weight 61.7 kg (136 lb) 07/23/2023 9:10 PM CDT Height 154.9 cm (5' 1 ) 07/23/2023 9:10 PM CDT Body Mass Index 25.7 07/23/2023 9:10 PM CDT Plan of Treatment Health Maintenance Due Date Last Done Comments PAP SMEAR 1997 HIV SCREENING 2012 HEPATITIS C SCREENING 03/06/2015 DTAP/TDAP/TD VACCINES (1 - Tdap) 2016 HEPATITIS B VACCINE (1 of 3 - 19+ 3-dose series) 2016 COVID-19 VACCINE ( - 2023-2 5 season) 2023 DEPRESSION SCREENING 04/22/2024 07/29/2023 INFLUENZA VACCINE (Season Ended) 2024 01/26/20 14 ZOSTER VACCINE (1 of 2) 2047 HIB VACCINE Aged Out No longer eligi ble based on patient's age to complete this topic HPV VACCINE Aged Out No longer eligi ble based on patient's age to complete this topic MENINGOCOCCAL (Group B) VACC INE SHARED DECISION-MAKING Aged Out No longer eligibl e based on patient's age to complete this topic MENINGOCOCCAL GROUPS A/C/Y/W VACCINE Aged Out No longer eligible b ased on patient's age to complete this topic PNEUMOCOCCAL VACCINE Aged Out No long er eligible based on patient's age to complete this topic Insurance AETNA AETNA Advance Directives * Full Code (Latest Code Status on File) Date Activated Date Inactivated Comments 07/23/2023 9:02 PM 07/25/2023 4:29 PM
--- OUTSIDE RECORDS SUMMARY | 2024-08-11 03:47 | XMS_ITS | Referral Summary ---
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
[2024-08-11 11:31] VITALS: BP 116/79; PULSE 78; RESP 16; TEMP 36.7; O2SAT 99; BMI 24.7
[2024-08-11 11:36] LABS: BEDSIDEPREGUCG Negative (Negative)
--- NOTE | 2024-08-11 11:36 | WPDANESEPPF ---
Anes - Initial Pre Proc Eval Procedure: Operation Date: 08/11/24 14:00 Proposed Procedures p Colonoscopy - Rishabh Sauceda MD Date/Time: 08/11/24 11:36 Surgeon: Rishabh Sauceda MD Pre Op Diagnosis: Diarrhea, unspecified,Melena Patient Data Age: 29 Gender: F Height: 1.55 m Weight: 59.5 kg Last Vital Signs Temp 36.7 C 08/11/24 11:31 Pulse 78 08/11/24 11:31 Resp 16 08/11/24 11:31 BP 116/79 08/11/24 11:31 Pulse Ox 99 08/11/24 11:31 O2 Del Method Room Air 08/11/24 11:31 Allergies Allergy/AdvReac Type Severity Reaction Status Date / Time No Known Allergies Allergy Verified 08/11/24 11:29 Home Medications ?Medication ?Instructions ?Recorded ?Confirmed ?Type ferrous sulfate 325 mg (65 mg 325 mg PO DAILY 02/22/22 03/14/22 History iron) tablet fluoxetine 20 mg tablet 20 mg PO DAILY 02/22/22 08/07/24 History ondansetron HCl 4 mg tablet 4 mg PO Q6H PRN Nausea 02/22/22 08/07/24 History prenat.vits,dottie,kfd-dmao-knlle 2 tablet PO DAILY 02/22/22 08/07/24 History ibuprofen 600 mg tablet 600 mg PO Q6H PRN cramps #30 tabs 03/14/22 08/07/24 Rx levonorgestrel-ethinyl estradiol 1 tablet PO DAILY 08/07/24 08/11/24 History 0.1 mg-20 mcg tablet (Vienva) Laboratory Tests 08/11/24 11:31 POC Urine HCG, Qual Negative (Negative) Patient hx anesthesia problems: none Family hx anesthesia problems: none Results Review: All pre-operative results and documents have been reviewed as part of the pre-operative evaluation. [facility] Past Medical History Medical History Anxiety Family History Family History Other Patient denies significant medical history Social History Social History Smoking status: Never smoker Second hand tobacco smoke exposure: No Alcohol intake: never Substance use: never Substance use type: marijuana Other substance usage details: Daily marijuana smoking Lack of Transportation: No Lack of Food: Never True Current Housing: I Have Housing Concerned About Future Housing: No Difficulty Paying Gas/Electric Bills: No Difficulty Paying for Meds: No Currently Unemployed: No Education: Associate Degree Difficulty w/ Childcare or Family Care: No Living arrangements: with family Spiritual care concerns: No Anes - Eval Final PreProcedure Day of Procedure 08/11/24 11:36 Patient weight: normal Heart: regular rate and rhythm Lungs: clear to auscultation Airway: Mallampati scale class II Neurological: alert and oriented Last oral intake: >/= 8 hours ASA classification: II Emergent: no Anesthetic plan: proceed Anesthesia type and monitoring: general GIVS and standard monitoring Results Review: All pre-operative results and documents have been reviewed as part of the pre-operative evaluation. Informed Consent: The patient's anesthetic plan and its attendant risks and benefits were discussed with the patient/family/POA. Questions were solicited and answers provided to the satisfaction of the patient/family/POA.
--- NOTE | 2024-08-11 11:38 | PM.HPGS ---
History of Present Illness History of Present Illness Consent: Risks, benefits, and alternatives have been discussed and questions answered. Patient agrees to proceed with procedure. Chief complaint: Diarrhea, unspecified,Melena Narrative: Irena Ayala is a 29 year old female here for first colonoscopy, had diarrhea and intermittent blood in stools since she had her baby Review of Systems Review of Systems: All systems reviewed & are unremarkable except as noted in HPI and below PMFSH Past Medical History Medical History (Updated 08/11/24 @ 11:40 by Rishabh Sauceda MD) Blood in stool Diarrhea Anxiety Family History Family History Other Patient denies significant medical history Social History Social History Smoking status: Never smoker Second hand tobacco smoke exposure: No Alcohol intake: never Substance use: never Substance use type: marijuana Other substance usage details: Daily marijuana smoking Lack of Transportation: No Lack of Food: Never True Current Housing: I Have Housing Concerned About Future Housing: No Difficulty Paying Gas/Electric Bills: No Difficulty Paying for Meds: No Currently Unemployed: No Education: Associate Degree Difficulty w/ Childcare or Family Care: No Living arrangements: with family Spiritual care concerns: No Meds Home Medications and Allergies Home Medications ?Medication ?Instructions ?Recorded ?Confirmed ?Type ferrous sulfate 325 mg (65 mg 325 mg PO DAILY 02/22/22 03/14/22 History iron) tablet fluoxetine 20 mg tablet 20 mg PO DAILY 02/22/22 08/07/24 History ondansetron HCl 4 mg tablet 4 mg PO Q6H PRN Nausea 02/22/22 08/07/24 History prenat.vits,dottie,dqf-kcmp-tytla 2 tablet PO DAILY 02/22/22 08/07/24 History ibuprofen 600 mg tablet 600 mg PO Q6H PRN cramps #30 tabs 03/14/22 08/07/24 Rx levonorgestrel-ethinyl estradiol 1 tablet PO DAILY 08/07/24 08/11/24 History 0.1 mg-20 mcg tablet (Vienva) Allergies Allergy/AdvReac Type Severity Reaction Status Date / Time No Known Allergies Allergy Verified 08/11/24 11:29 Vital Signs Vital Signs - 24 hr 08/11/24 11:31 Temperature 98.1 F Pulse Rate 78 Respiratory Rate 16 Blood Pressure 116/79 Pulse Oximetry 99 Oxygen Delivery Room Air Exam Const: General: comfortable and no acute distress HENMT: Face/Nose/Sinus: Normal nares present Eyes: General: appearance normal, both eyes and all related structures Neck: Neck: no JVD Resp: Auscultation: clear to auscultation bilaterally Cardio: Rate: regular rate Rhythm: regular rhythm GI: Inspection: non-distended GI Palp: Yes Soft to palpation Skin: General skin exam: normal color Neuro: General: gait normal Speech: normal speech Extrem: General: normal to inspection Psych: Mental Status: mental status grossly normal Assessment and Plan Assessment and plan (1) Diarrhea: Code(s): R19.7 - Diarrhea, unspecified Status: Acute Assessment and Plan: colonoscopy, consider bx (2) Blood in stool: Code(s): K92.1 - Melena Status: Acute
[2024-08-11] MEDS: LACTATED RINGERS 1,000 ML 150 ML IV CONT (11:39)
[2024-08-11 11:57] VITALS: BP 94/57; PULSE 67; RESP 16; O2SAT 97
[2024-08-11 12:07] VITALS: BP 108/70; PULSE 64; RESP 16; O2SAT 100
[2024-08-11 12:17] VITALS: BP 94/64; PULSE 62; RESP 16; O2SAT 100
== END 2024-08-11 12:24 | disposition home or self-care (01) ==
PROVIDERS: Anesthesiology; Referring Provider Obstetrics & Gynecology; Visit Provider Internal Medicine Gastroenterology
PROC: 0DJD8ZZ Inspection of Lower Intestinal Tract, Via Natural or Artificial Opening Endoscopic (ICD-10-PCS; CPT 45378; principal; 2024-08-11 14:00)
DX: K92.1 Melena (principal); R19.7 Diarrhea, unspecified; F41.9 Anxiety disorder, unspecified; F12.90 Cannabis use, unspecified, uncomplicated; Z79.1 Long term (current) use of non-steroidal anti-inflammatories (NSAID)
CPT/HCPCS: 45380; 88305; J2003; J2704; J7120

== ENCOUNTER 2025-04-10 09:51 | Emergency (ER) | payer OTHER, SELFPAY ==
[2025-04-10 10:00] VITALS: BP 109/77; PULSE 78; RESP 16; TEMP 36.6; O2SAT 100
[2025-04-10] MEDS: FAMOTIDINE 20 MG TABLET PO (10:20)
[2025-04-10] MEDS: ONDANSETRON HCL ODT 4 MG TABLET PO (10:20)
[2025-04-10 10:48] LABS: EDINFLUASCREEN Negative (Negative); EDINFLUBSCREEN Negative (Negative)
[2025-04-10 10:52] LABS: BEDSIDEPREGUCG Negative (Negative); EDCOVIDSCREEN Negative (Negative); EDUAAPPEAR Cloudy; EDUABILI Negative (Negative); EDUABLOOD Negative (Negative); EDUACOLOR1 Yellow; EDUAGLUCOSE Negative (Negative); EDUAKETONE 3+ (Negative); EDUALEUKO Negative (Negative); EDUANITRATE Negative (Negative); EDUAPH 6.0; EDUAPROTEIN Negative (Negative); EDUASPGRAVITY 1.010; EDUAUROBILI 0.2
--- NOTE | 2025-04-10 10:52 | ED.GENADULT ---
HPI - General Adult General Chief complaint: Nausea/Vomiting/Diarrhea Stated complaint: Vomiting/Diarrhea Source: patient Mode of arrival: ambulatory Limitations: no limitations History of Present Illness HPI narrative: patient presents for evaluation of nausea and vomiting for the last 2 days. She denies any new foods. She states she received a letter from her son school indicating that a GI bug was going around, although her son has not had any symptoms. She denies any other sick contacts. She reports a diffuse abdominal pain that is throbbing and 8/10 in severity. She notes diarrhea that looks like green jelly. She denies any urinary symptoms. LMP two months ago. She had an implantable control removed in September and started will contraception at that time. She denies any history of abdominal surgeries. He denies alcohol use. She does use marijuana but does not smoke or vape. Related Data Home Medications ?Medication ?Instructions ?Recorded ?Confirmed ?Last Taken ?Type ferrous sulfate 325 mg (65 mg 325 mg PO DAILY 02/22/22 03/14/22 03/12/22 History iron) tablet fluoxetine 20 mg tablet 20 mg PO DAILY 02/22/22 08/07/24 03/12/22 History ondansetron HCl 4 mg tablet 4 mg PO Q6H PRN Nausea 02/22/22 08/07/24 Unknown History prenat.vits,dottie,phc-ptrg-hmxqd 2 tablet PO DAILY 02/22/22 08/07/24 03/12/22 History levonorgestrel-ethinyl estradiol 1 tablet PO DAILY 08/07/24 04/10/25 08/11/24 History 0.1 mg-20 mcg tablet (Vienva) Allergies Allergy/AdvReac Type Severity Reaction Status Date / Time No Known Allergies Allergy Verified 04/10/25 10:11 Review of Systems Review of Systems: CONSTITUTIONAL: Denies fever, chills, or sweats. EYES: Denies visual changes, redness, or discharge. ENT: Denies rhinorrhea, congestion, sore throat, or otalgia. CARDIOVASCULAR: Denies chest pain, palpitations, or edema. RESPIRATORY: Denies cough or dyspnea. GASTROINTESTINAL:Reports nausea, vomiting, abdominal pain and diarrhea that looks like green jelly GENITOURINARY: Denies dysuria or hematuria. SKIN: Denies rash or itching. MUSCULOSKELETAL: Denies back pain, joint pain, or myalgia. NEUROLOGIC: Denies headache, numbness, dizziness, or weakness. PSYCHIATRIC: Denies anxiety or depression. [facility] Past Medical History Medical History (Updated 04/10/25 @ 11:47 by Nicolas Tapia APRN, FLOR[place]) Blood in stool Diarrhea Anxiety Surgical History Surgical History (Updated 04/10/25 @ 10:56 by Nicolas Tapia APRN, [place]OR[place]) No pertinent past surgical history Family History Family History Other Patient denies significant medical history Social History Social History Smoking status: Never smoker Second hand tobacco smoke exposure: No Alcohol intake: never Substance use: never Substance use type: marijuana Other substance usage details: Daily marijuana smoking Lack of Transportation: No Lack of Food: Never True Current Housing: I Have Housing Concerned About Future Housing: No Difficulty Paying Gas/Electric Bills: No Difficulty Paying for Meds: No Currently Unemployed: No Education: Associate Degree Difficulty w/ Childcare or Family Care: No Living arrangements: with family Spiritual care concerns: No Exam Narrative: GENERAL: Appears acutely ill but nontoxic. Pale in appearance HEAD: Normocephalic, atraumatic. EYES: PERRLA and EOMI. ENT: Nares clear, no rhinorrhea or epistaxis. Mucous membranes moist. Oropharynx without tonsillar hypertrophy exudate or other lesions. Bilateral TMs pearly tee nonbulging NECK: Supple. No adenopathy or masses. No carotid bruits or JVD CHEST: Clear to auscultation. No respiratory distress. No wheezes rales or rhonchi HEART: Regular rate and rhythm. No murmur heard. Normal peripheral pulses. ABDOMEN: Soft, diffuse mild tenderness, nondistended, normal active bowel sounds. EXTREMITIES: Normal range of motion. No edema. SKIN: Warm, dry, no rash. NEURO: No focal deficits. Alert and oriented x3. PSYCH: Normal mood and affect. Course Course Emergency Course: This is a 30 year old female who presented for evaluation of GI symptoms. Flu and COVID negative. Urinalysis without evidence of infection. She was given pepcid and zofran. Pain persisted. Through shared decision making we agreed to send her to the hospital for further evaluation. [facility] is her facility of choice. I contacted the ER at [place] and spoke with Dr Skinner. He agreed to accept pt for transfer there. Patient transferred to the hospital via private vehicle. Level of Care: Express Care Visit Vital Signs Vital signs: Vital Signs Temperature 36.6 C 04/10/25 10:00 Pulse Rate 78 04/10/25 10:00 Respiratory Rate 16 04/10/25 10:00 Blood Pressure 109/77 04/10/25 10:00 Pulse Oximetry 100 04/10/25 10:00 Temperature 36.6 C 04/10/25 10:00 Pulse Rate 78 04/10/25 10:00 Respiratory Rate 16 04/10/25 10:00 Blood Pressure 109/77 04/10/25 10:00 Pulse Oximetry 100 04/10/25 10:00 [facility] Differential Diagnosis Differential Diagnosis: gastroenteritis versus COVID versus flu versus colitis versus other Lab Data Labs: Lab Results 04/10/25 04/10/25 Range/Units 10:45 10:50 POC Urine Color Yellow POC Urine Clarity Cloudy POC Urine pH 6.0 POC Ur Specif [place]ak 1.010 POC Urine Protein Negative (Negative) POC Ur Glucose (UA) Negative (Negative) POC Urine Ketones 3+ (Negative) POC Urine Blood Negative (Negative) POC Urine Nitrite Negative (Negative) POC Urine Bilirubin Negative (Negative) POC Urine Urobilinogen 0.2 POC U Leukocyte Esteras Negative (Negative) POC Urine HCG, Qual Negative (Negative) POC Influenza A Ag Negative (Negative) POC Influenza B Ag Negative (Negative) POC SARS CoV-2 Ag Negative (Negative) Discharge Plan Discharge Clinical Impression: Nausea & vomiting, Abdominal pain Patient Disposition: Acute Care Hospital Condition: Stable Patient Language: Greenlandic Prescriptions: No Action ondansetron HCl 4 mg Tablet 4 mg PO Q6H PRN (Reason: Nausea) ferrous sulfate 325 mg (65 mg iron) Tablet 325 mg PO DAILY Patient Comments: Not taking fluoxetine 20 mg Tablet 20 mg PO DAILY Patient Comments: Not taking prenat.vits,dottie,wiy-uwew-tijkp Tablet 2 tablet PO DAILY Patient Comments: Not taking Rx Instructions: Gummie ibuprofen 600 mg tablet 600 mg PO Q6H PRN (Reason: cramps) Qty: 30 0RF Patient Comments: Not taking levonorgestrel-ethinyl estrad [Vienva] 0.1-20 mg-mcg tablet 1 tablet PO DAILY Follow-up/Referrals: PHYSICIAN,FOLDER INSPECTOR [Primary Care Provider, Internal Medicine] Time of Disposition: 11:47
== END 2025-04-10 11:40 | disposition short-term general hospital (02) ==
PROVIDERS: Emergency Provider Nurse Practitioner
DX: R11.2 Nausea with vomiting, unspecified (principal); R10.9 Unspecified abdominal pain; Z20.822 Contact with and (suspected) exposure to COVID-19; F12.90 Cannabis use, unspecified, uncomplicated; F41.9 Anxiety disorder, unspecified
CPT/HCPCS: 81003; 81025; 87426; 87804; 99213; A9270; G0463

== ENCOUNTER 2025-04-10 12:02 | Emergency (ER) | payer OTHER, SELFPAY ==
--- NOTE | ~2025-04-10 | CT_ITS ---
CT abdomen pelvis w con Clinical History: ABDOMINAL PAIN . Comparison: None Technique: Axial images lung bases to symphysis pubis IV contrast information not listed in PACS Coronal, sagittal reformats CT images acquired with automatic exposure control for dose reduction DLP: 183 mGy-cm Findings: Lung bases: Clear. Visualized heart and pericardium: Unremarkable. Liver: Enlarged. Gallbladder: Unremarkable. Spleen: Unremarkable. Pancreas: Unremarkable. Adrenal glands: Unremarkable. Kidneys: Right kidney- No hydronephrosis. No renal stones. Left kidney- No hydronephrosis. No renal stones. Distal esophagus/stomach: Unremarkable. Small bowel loops: Mild wall thickening within distal loops. Colon: Normal caliber and wall thickness. Normal RLQ appendix. Nodes: No enlarged nodes. Peritoneum: No ascites. No free air. Urinary bladder: Unremarkable. Uterus: Unremarkable. Adnexa: No masses. Small fatty focus left side consistent with tiny dermoid. Bones: No acute bony abnormality. Soft tissues: Unremarkable. Aorta: No aneurysm or dissection. IVC: Unremarkable. Main portal vein/SMV/splenic vein: Patent. IMPRESSION: 1. Suspect enteritis. 2. Otherwise no acute abnormality. Reviewed, dictated and finalized at location R. 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
--- OUTSIDE RECORDS SUMMARY | 2025-04-10 12:04 | XMS_ITS | Clinical Summary ---
Author Organization [facility] Address [address] [place] [address] Care Team Providers Care Clinical Cytogeneticist Scientist Name Role Phone Fredi Swenson MD Primary Care Provider + Allergies Active Allergy Reactions Criticality Noted Date Comments Amoxicillin-Pot Clavulanate Diarrhea Low 10/05/19 23 Medications levonorgestreL-ethi nyl estrad (Levora-28) 0.15-0.03 mg per tabletIndications:E ncounter for prescription of oral contraceptives Take 1 tablet by mouth daily 28 tablet 3 1 Active polycarbophil (FIBERCON) 625 mg tabletIndications:H ematochezia Take 1 tablet (625 mg total) by mouth daily 30 tablet 11 5 09/25/19 26 Active Lactobac. rhamnosus GG-inulin 10 billion cell -200 mg tablet,chewableIndi cations:Hematochezi a Take one tab daily 30 tablet 11 5 Active FLUoxetine (PROzac) 20 mg capsuleIndications: Anxiety Take 1 capsule (20 mg total) by mouth daily 90 capsule 4 5 09/25/19 26 Active Active Problems Problem Noted Date Diagnosed Date Anxiety 09/24/2024 Hematochezia 09/24/2024 Irritability 09/24/2024 Adopted 09/24/2024 Abnormal thyroid blood test 09/24/2024 Immunizations Immunization Administration Dates Next Due DTaP [...] often do you have a drink containing alc ohol? Monthly or less 09/24/2024 Q2: How many drinks containi ng alcohol do you have on a typical day when you are drinking? 3 or 4 09/24/2024 Q3: How often do you have si x or more drinks on one occasion? Never 09/24/2024 PHQ-2 Answer Date Recorded PHQ-2 Total Score (If total score is 3 or more points, staff should administer the PHQ-9) 0 09/24/2024 PHQ-9 Answer Date Recorded PHQ-9 Total Score 1 09/24/2024 Personal Safety Answer Date Recorded Have you ever been in or are you currently in a harmful physical or emotional relationship or is someone making you feel afraid or unsafe? 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 ([facility]) Last Filed Vital Signs Vital Sign Reading Time Taken Comments Blood Pressure 108/76 09/24/2024 10:40 AM CDT Pulse 84 09/24/2024 10:40 AM CDT Temperature 37.2 C (99 F) 09/24/2024 10:40 AM CDT Respiratory Rate 18 09/24/2024 10:40 AM CDT Oxygen Saturation 98% 09/24/2024 10:40 AM CDT Inhaled Oxygen Concentration - - Weight 60.8 kg (134 lb) 09/24/2024 10:40 AM CDT Height 154.9 cm (5' 1) 09/24/2024 10:40 AM CDT Body Mass Index 25.32 09/24/2024 10:40 AM CDT Plan of Treatment Health Maintenance Due Date Last Done Comments Cervical Cancer Screening 1997 Hepatitis C Screening 1997 Covid-19 Vaccine ( season) 2024 06/14/2020, 05/17/2020 Influenza Vaccine (#1) 2024 01/25/2014 Depression Screening 09/24/2025 09/24/2024, 09/25/19 Regular Well Visit/Exam 18-64 09/24/2025 09/24/2024 DTaP/Tdap/Td Vaccine (8 - Td or Tdap) 08/16/2030 08/16/2020, 11/01/2008, 12/03/2001, Additional history exists Hepatitis B Screening Completed 1997 , 1997, 1997 HPV Vaccines Completed 12/19/2010, 0408/2010, 02/07/2010 Varicella Vaccines Completed 05/07/2013, 12/03/2001 Pneumococcal vaccine <65 Aged Out No longer eligible based on patient's age to complete this topic Insurance [facility] HMO/PPO Address: [address] [address] [place] [address] [facility] CMR Care Teams Clinical Cytogeneticist Scientist Relationship Specialty Start Date End Date Fredi Swenson MD [address] [facility] [address] [place], [place] [id number] PCP - General Family Medicine 09/24/24
--- OUTSIDE RECORDS SUMMARY | 2025-04-10 12:04 | XMS_ITS | Encounter Summary ---
Author Organization [facility] Address [address] [place] [address] Care Team Providers Care Genetic Counselor Name Role Phone Unavailable Primary Care Provider Unavailabl e Encounter Details Date Type Department Care Team (Late st Contact Info) Description 05/13/[address] [facility] [address] [place] [id number] Vanessa Bridges MD [address] [place] [id number] Social History Tobacco Use Types Packs/Day Years [...] care, and heating? Not very hard 03/20/2023 [facility] [place] of Occupat ional Health - Occupational Stress [...] place to sleep or slept in a half-way (including now)? No 03/20/2023 Davis Depression Scale Answer Date Recorded Davis Depression Scale Total 5 05/06/2023 The thought of harming myself has occurred to me . Never 05/06/2023 Comments Yes Sex and Gender Information Value Date Recorded Sex Assigned at Not on file Legal Sex Female 4:22 AM PROCESSING TECHNICIAN Gender Identity Not on file Sexual Orientation Not on file documented as of this encounter Plan of Treatment Not on file documented as of this encounter Visit Diagnoses Not on filedocumented in this encounter
--- OUTSIDE RECORDS SUMMARY | 2025-04-10 12:04 | XMS_ITS | Clinical Summary ---
Author Organization [facility] [employer] Address [address] [place] [address] Care Team Providers Care Hooker Operator Name Role Phone Unavailable Primary Care Provider Unavailabl e Source Comments [facility] [employer],non-owned Affiliates and Associated Physician Practices is amultiple site organization consisting of ambulatory clinics and hospital sitesin [place], [place], [place] and [place]. This disclosure is being madepursuant to the Care Everywhere program and may not contain all information available regarding this patient. Last updated 18.[facility] [employer] Allergies No known active allergies Medications * [...] Diagnosed Date Resolved Date Depression screen-Initial at [facility] 03/28/2023 03/28/2023 07/25/2023 Overview (07/08/2023): 03/28/2023 Irena Ayala was screened for depression using the [place] Depression Scale (EPDS) at her [facility] initial evaluation on 03/28/2023. Her initial score [...] up EPDS score=7. 07/08/2023-Follow up EPDS score=3. [facility]- abnormality in pre gnancy-complex heart defect 03/20/2023 07/25/2023 Overview (07/22/2023): Images from the original note were not included. [facility] PATIENT--PLEASE CALL [phone] (ex 2) IF TRIAGED OR ADMITTED Care Provider: Dr. Duc Ingram [facility] consultants involved: Nurse Navigator-Promise Baer; MFM-Drs. Rodrigez/Ze; Pediatric Cardiology-Dr. Thakur; Neonatology-Dr. Woods; CT Surgery-Dr. High; Genetic Counselor-Magaly Mejia; Footprints-Dr. 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 Recommend delivery at [facility], or tertiary care facility. 2. Draw CARPET FLOOR LAYER APPRENTICE from cord blood at delivery 3. Neonatology [...] delivery: Pediatric Cardiology 6. 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 Rest of Cardiac Planning per Pediatric Cardiology 8. Anticipated delivery room complications: none anticipated 9. Umbilical lines: Yes If yes, to be placed at [facility] or ? At [facility] prior to transfer Validation Consultant: Dr. Jennifer Ingram Genetics note: genetic diagnostic [...] indicated by calling the Genetics office at [phone] prior to ordering additional genetic studies. Human Services Case Manager Concerns: 03/28/2023-Patient with history of anxiety-does take [...] care, and heating? Not very hard 07/23/2023 [facility] [place] of Occupat ional Health - Occupational Stress [...] place to sleep or slept in a [place] [facility] [place] facility (including now)? No 07/23/2023 Charleston Depression Scale Answer Date Recorded [place] Depression Scale Total 6 07/29/2023 The thought of harming myself has occurred to me . 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 Gender Identity Not on file Sexual Orientation [...] 9:10 PM CDT Height 154.9 cm (5' 1) 07/23/2023 9:10 PM CDT Body Mass Index 25.7 07/23/2023 9:10 PM CDT Plan of Treatment Health Maintenance Due Date Last Done Comments HIV SCREENING 2012 HEPATITIS C SCREENING 03/06/2015 DTAP/TDAP/TD VACCINES (1 - Tdap) 2016 HEPATITIS B VACCINE (1 of 3 - 19+ 3-dose series) 2016 PAP SMEAR 2018 HPV VACCINE (1 - 3-dose SCDM series) 2024 DEPRESSION SCREENING 04/22/2024 COVID-19 VACCINE (1 - 2024-2 6 season) 2024 INFLUENZA VACCINE (#1) 2024 01/25/2014 ZOSTER VACCINE (1 of 2) 2047 HIB [...] to complete this topic Insurance AETNA AETNA Member Subscriber Plan / Payer (Ef fective 2022-Present) Name:Irena Ayala Relation to Subscriber:Spouse Name:AVRIL AYALA Date of :1995 (Home) Address: [address] [place] [address] Payer ID:[id number] (NAIC) Type:PPO Address: [address] [place] [id number] [place] [address] SELF PAY NO INSURANCE Member Subscriber Plan / Payer (Ef fective for All Dates) Name:Irena Ayala Member ID:Not on file Relation to Subscriber:Not on file Name:IRENA AYALA Subscriber ID:Not on file (Home) Address: [address] [place] [phone] Payer ID:Not on file Group ID:Not on file Type:Self Pay Address: [place], [place] Advance Directives * Full Code (Latest Code Status on File) Date Activated Date Inactivated Comments 07/23/2023 9:02 PM 07/25/2023 4:29 PM
[2025-04-10 12:05] VITALS: BP 121/80; PULSE 69; RESP 20; TEMP 36.7; O2SAT 100
--- NOTE | 2025-04-10 12:13 | ED_ITS ---
HPI - Nausea/Vomiting/Diarrhea General Chief complaint: Nausea/Vomiting/Diarrhea Stated complaint: n/v/d Time Seen by Provider: 04/10/25 12:12 Source: patient Mode of arrival: ambulatory Limitations: no limitations History of Present Illness HPI Narrative: 30 YEARS OLD WHITE FEMALE CAME TO THE ED FROM HOME BY PRIVATE CAR COMPLAINING OF NAUSEA, VOMITING AND DIARRHEA FOR THE LAST 3 DAYS, A LOT OF VOMITING, A LOT OF DIARRHEA, ASSOCIATED WITH UPPER ABDOMINAL PAIN, AND CHILLS. PATIENT REPORTS HER KIDS AT SCHOOL HAVE GI BUG GOING AROUND BUT HER KIDS ARE OKAY.. PATIENT IS HEALTHY OTHERWISE, USES MARIJUANA OCCASIONALLY. Related Data Home Medications ?Medication ?Instructions ?Recorded ?Confirmed ?Last Taken ?Type ferrous sulfate 325 mg (65 mg 325 mg PO DAILY 02/22/22 03/14/22 03/12/22 History iron) tablet fluoxetine 20 mg tablet 20 mg PO DAILY 02/22/2207/2103/12/22 History ondansetron HCl 4 mg tablet 4 mg PO Q6H PRN Nausea 07/1108/07/24 Unknown History prenat.vits,dottie,kqq-oisb-zyirg 2 tablet PO DAILY 02/2208/07/24 03/12/22 History levonorgestrel-ethinyl estradiol 1 tablet PO DAILY 04/10/25 08/11/24 History 0.1 mg-20 mcg tablet (Vienva) Allergies Allergy/AdvReac Type Severity Reaction Status Date / Time metoclopramide (From Reglan) AdvReac Intermediate Agitated Verified 04/10/25 15:12 Review of Systems 2 Review of Systems: All systems reviewed & are unremarkable except as noted in HPI and below PMFSH Past Medical History Medical History Blood in stool Diarrhea Anxiety Surgical History Surgical History No pertinent past surgical history Family History Family History Other Patient denies significant medical history Social History Social History Smoking status: Never smoker Second hand tobacco smoke exposure: No Alcohol intake: never Substance use: never Substance use type: marijuana Other substance usage details: Daily marijuana smoking Lack of Transportation: No Lack of Food: Never True Current Housing: I Have Housing Concerned About Future Housing: No Difficulty Paying Gas/Electric Bills: No Difficulty Paying for Meds: No Currently Unemployed: No Education: Associate Degree Difficulty w/ Childcare or Family Care: No Living arrangements: with family Spiritual care concerns: No Exam 2 Narrative: GENERAL APPEARANCE: WELL-DEVELOPED, WELL-NOURISHED SKIN: NORMAL COLOR HEAD: NORMOCEPHALIC, NONTRAUMATIC EYES: CLEAR CONJUNCTIVA ENT: OROPHARYNX NORMAL, EARS NORMAL, NOSE NORMAL NECK: SUPPLE, NONTENDER CHEST AND RESPIRATORY: AIRWAY PATENT, NO RESPIRATORY DISTRESS, NO ACCESSORY MUSCLE USE HEART: REGULAR RATE/RHYTHM ABDOMEN: SOFT, MILD EPIGASTRIC TENDERNESS, NO ORGANOMEGALY, HYPERACTIVE BOWEL SOUNDS VASCULAR: NORMAL PERIPHERAL PULSES, NORMAL CAPILLARY REFILL. MUSCULOSKELETAL: NORMAL RANGE OF MOTION, NONTENDER BACK NEUROLOGIC: ALERT AND ORIENTED ?3, LAB ASSISTANT IS NORMAL TESTED, NO GROSS MOTOR DEFICIT Course Vital Signs Vital signs: Vital Signs Temperature 36.7 C 04/10/25 12:05 Pulse Rate 69 04/10/25 12:05 Respiratory Rate 20 04/10/25 12:05 Blood Pressure 121/80 04/10/25 12:05 Pulse Oximetry 100 04/10/25 12:05 Oxygen Delivery Room Air 04/10/25 12:05 Temperature 36.6 C 04/10/25 15:05 Pulse Rate 74 04/10/25 15:05 Respiratory Rate 16 04/10/25 15:05 Blood Pressure 122/73 04/10/25 15:05 Pulse Oximetry 96 04/10/25 15:05 Oxygen Delivery Room Air 04/10/25 12:05 [facility] Narrative Medical decision making narrative: PATIENT PRESENTS WITH NAUSEA VOMITING AND DIARRHEA VITAL SIGNS ARE STABLE PHYSICAL EXAMINATION SHOWING EPIGASTRIC TENDERNESS AND HYPERACTIVE BOWEL SOUNDS DIFFERENTIAL DIAGNOSIS INCLUDE GASTROENTERITIS, DEHYDRATION, ELECTROLYTE IMBALANCE BLOOD WORKUP TODAY INCLUDES CBC, CMP, LIPASE SHOWED NO SIGNIFICANT ABNORMALITY PATIENT TESTED NEGATIVE FOR COVID FLU AND RSV CT ABDOMEN AND PELVIS WITH IV CONTRAST SHOWED SUSPECTED ENTERITIS PATIENT COULD NOT KEEP FLUID OR CRACKERS DOWN. SUBSEQUENTLY PATIENT RECEIVED 10 MG OF COMPAZINE IV, 50 MG BENADRYL IV WITH REMARKABLE IMPROVEMENT. PATIENT ABLE TO KEEP P.O. CHALLENGE AND CURRENTLY FEELING GREAT AND WOULD LIKE TO GO HOME. DIAGNOSIS GASTROENTERITIS THE PT WAS DISCHARGED TO HOME.THE PT,S CONDITION UPON DISCHARGE WAS FAIR,EDUCATION WAS PROVIDED TO THE PT IN REFERENCE TO THE FINAL IMPRESSION,DISCHARGE STUDY RESULTS,TREATMENT,PROGNOSIS AND NEED FOR FOLLOW UP . Differential Diagnosis Differential Diagnosis: ABOVE Lab Data 04/10/25 12:31 04/10/25 12:31 Labs: Lab Results 04/10/25 04/10/25 Range/Units 12: 12: WBC 5.8 (4.5-10.0) K/mm3 RBC 4.92 (4.2-5.4) M/mm3 Hgb 14.2 D (12.0-15.0) g/dL Hct 41.8 (37.0-47.0) % MCV 85.0 (80-100) fl MCH 28.9 (26-34) pg MCHC 34.0 (32-36) g/dl RDW 13.4 (11.5-14.5) % Plt Count 297 (150-375) k/mm3 MPV 9.6 (7.4-10.4) fl Immature Gran % (Auto) 0.2 (0-0.5) % Neut % (Auto) 68.4 (45.5-73.1) % Lymph % (Auto) 18.8 (18.3-44.2) % [place] % (Auto) 11.4 H (2.6-8.5) % Eos % (Auto) 0.3 (0-4.4) % Baso % (Auto) 0.9 (0.2-1.2) % Lymph # (Auto) 1.09 (0.9-3.2) K/mm3 [place] # (Auto) 0.7 H (0.1-0.6) K/mm3 Eos # (Auto) 0.0 (0-0.3) K/mm3 Baso # (Auto) 0.1 (0.0-0.1) K/mm3 Abs Immat Gran (auto) 0.01 (0.00-0.031) K/mm3 Absolute Neuts (auto) 4.0 (1.3-6.7) K/mm3 Absolute Nucleated RBC 0.000 (0.0-0.012) K/mm3 Nucleated RBC % 0.0 (0.0-0.2) % Sodium 134 L (137-145) mmol/L Potassium 4.0 (3.4-5.0) mmol/L Chloride 99 (98-107) mmol/L Carbon Dioxide 25 (22-30) mmol/L Anion Gap 10 (4-12) mmol/L BUN 11 (7-17) mg/dL Creatinine 0.80 (0.7-1.0) mg/dL Estim Creat Clear Calc 69 ml/min Estimated GFR > 60 (59 - ) Glucose 74 (65-110) mg/dL Calcium 9.5 (8.4-10.2) mg/dL Total Bilirubin 0.5 (0.2-1.3) mg/dL AST 32 (14-36) U/L ALT 17 (6-35) U/L Alkaline Phosphatase 90 (38-126) U/L Total Protein 8.1 (6.3-8.2) g/dL Albumin 4.6 (3.5-5.1) g/dL Lipase 67 (23-300) U/L POC Urine HCG, Qual Negative (Negative) Influenza A (RT-PCR) Negative (Negative) Influenza B (RT-PCR) Negative (Negative) RSV (RT-PCR) Negative (Negative) SARS-CoV-2 RNA (RT-PCR) Negative (Negative) Imaging Data Radiologist's impression: ITS Impressions Abdomen/Pelvis CT 04/10/25 13:34 IMPRESSION: 1. Suspect enteritis. 2. Otherwise no acute abnormality. Critical Care Time Critical Care Time Critical Care Time: Yes Time Type: Intermittent Initial evaluation, discuss w/ involved parties, attempting to gather old records: 10 minutes Documenting medical record: 5 minutes Review of results (EKG's, labs, imaging): 5 minutes Serial repeat bedside evaluation: 10 minutes Discussing case with multiple memebers of the care team and consultants: 5 minutes Total Critical Care Time: 35 Discharge Plan Discharge Clinical Impression: Gastroenteritis Patient Disposition: Still a Patient Condition: Stable Instructions: Gastroenteritis (ED) Additional Instructions: RETURN IF SYMPTOMS ARE WORSENING , CALL YOUR FAMILY PHYSICIAN FOR APPOINTMENT, TAKE TYLENOL NEEDED FOR ACHES AND PAIN, CONTINUE HOME MEDICATIONS. [id number] IMODIUM ENCOURAGE FLUID INTAKE Patient Language: Sinhala Prescriptions: New ondansetron 4 mg tablet,disintegrating 4 mg PO Q4H 0 Days Qty: 10 0RF Rx Instructions: 1st dose 1-2 hr before radiation No Action ondansetron HCl 4 mg Tablet 4 mg PO Q6H PRN (Reason: Nausea) ferrous sulfate 325 mg (65 mg iron) Tablet 325 mg PO DAILY Patient Comments: Not taking fluoxetine 20 mg Tablet 20 mg PO DAILY Patient Comments: Not taking prenat.vits,dottie,sfe-asej-zoohj Tablet 2 tablet PO DAILY Patient Comments: Not taking Rx Instructions: Gummie ibuprofen 600 mg tablet 600 mg PO Q6H PRN (Reason: cramps) Qty: 30 0RF Patient Comments: Not taking levonorgestrel-ethinyl estrad [Vienva] 0.1-20 mg-mcg tablet 1 tablet PO DAILY Follow-up/Referrals: PHYSICIAN,PRESIDENT AND CHIEF COMMERCIAL OFFICER [Primary Care Provider, Internal Medicine]
[2025-04-10] MEDS: SODIUM CHLORIDE 0.9% IV 2,000 ML 999 ML IV CONT (12:31)
[2025-04-10 12:32] LABS: BEDSIDEPREGUCG Negative (Negative)
[2025-04-10] MEDS: ONDANSETRON INJ 4 MG/2 ML VIAL 8 MG IV PUSH (12:32)
--- OUTSIDE RECORDS SUMMARY | 2025-04-10 12:38 | XMS_ITS | Clinical Summary ---
Author Organization [facility] Address [address] [place] [address] Care Team Providers Care Weight Reduction Specialist Name Role Phone Unavailable Primary Care Provider Unavailabl e Source Comments [facility],non-owned Affiliates and Associated Physician Practices is amultiple site organization consisting of ambulatory clinics and hospital sitesin [place], [place], [place] and [place]. This disclosure is being madepursuant to the Care Everywhere program and may not contain all information available regarding this patient. Last updated 18.[facility] Allergies No known active allergies Medications * [...] Diagnosed Date Resolved Date Depression screen-Initial at LONG TERM 03/28/2023 03/28/2023 07/25/2023 Overview (07/08/2023): 03/28/2023 Irena Ayala was screened for depression using the [place] Depression Scale (EPDS) at her [facility] initial evaluation on 03/28/2023. Her initial score [...] up EPDS score=7. 07/08/2023-Follow up EPDS score=3. LONG TERM- abnormality in pre gnancy-complex heart defect 03/20/2023 07/25/2023 Overview (07/22/2023): Images from the original note were not included. LONG TERM PATIENT--PLEASE CALL [phone] (ex 2) IF TRIAGED OR ADMITTED Care Provider: Dr. Duc Ingram [facility] consultants involved: Nurse Navigator-Promise Baer; MFM-Drs. Rodrigez/Ze; Pediatric Cardiology-Dr. Thakur; Neonatology-Dr. Woods; CT Surgery-Dr. High; Genetic Counselor-Magaly Mejia; Footprints-Dr. 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: Yes Rapid Transport to [facility]: No PGE: Yes, start at 0.03mcg/kg/min Per neonatology- 1. Recommend delivery at [facility], or tertiary care facility. 2. Draw BROOM WORKER from cord blood at delivery 3. Neonatology attending will be expected to be present at delivery. 4. will need to be transferred to [facility] a. Transport team should be notified after [...] Yes If yes, to be placed at [facility] or ? At [facility] prior to transfer Integrated Circuit Layout Designer: Dr. Jennifer Ingram Genetics note: genetic diagnostic [...] indicated by calling the Genetics office at [phone] prior to ordering additional genetic studies. Supervisor Fish Bait Processing Concerns: 03/28/2023-Patient with history of anxiety-does take [...] care, and heating? Not very hard 07/23/2023 [facility] [place] of Occupat ional Health - Occupational Stress [...] place to sleep or slept in a nursing home (including now)? No 07/23/2023 [place] Depression Scale Answer Date Recorded [place] Depression Scale Total 6 07/29/2023 The thought of harming myself has occurred to me . 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 Sex Female 4:22 AM AIR GUN OPERATOR Gender Identity Not on file Sexual Orientation [...] AYALA Date of :1993 (Home) Address: [address] [place] [address] Payer ID:[id number] (NAIC) Type:PPO Address: [address] [place] [address] [place] [address] SELF PAY NO INSURANCE Member Subscriber Plan / Payer (Ef fective for All Dates) Name:Irena Ayala Member ID:Not on file Relation to Subscriber:Not on file Name:IRENA AYALA Subscriber ID:Not on file (Home) Address: [address] [place] [id number] Payer ID:Not on file Group ID:Not on file Type:Self Pay Address: [place], [place] Advance Directives * Full Code (Latest Code Status on File) Date Activated Date Inactivated Comments 07/23/2023 9:02 PM 07/25/2023 4:29 PM
--- OUTSIDE RECORDS SUMMARY | 2025-04-10 12:38 | XMS_ITS | Clinical Summary ---
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 Not on file [...] 9 Braxto eleuterio mcclellan MD Complications:None Delivery Location:[facility]note 3[facility] ([facility]) Last Filed Vital Signs Vital Sign Reading [...] patient's age to complete this topic Insurance [facility] H[facility]/PPO Address: [address] [address] [place] [address] [facility] CMR Care Teams Hydro Generation Manager Relationship Specialty Start Date End Date Fredi Swenson MD [address] [facility] [address] [place], [place] [id number] PCP - General Family Medicine 09/24/24
--- OUTSIDE RECORDS SUMMARY | 2025-04-10 12:38 | XMS_ITS | Encounter Summary ---
Author Organization 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 Not very hard 03/20/2023 [facility] [place] of Occupat ional Health - Occupational Stress [...] place to sleep or slept in a prison (including now)? No 03/20/2023 [place] Depression Scale Answer Date Recorded [place] Depression Scale Total 5 05/06/2023 The thought of harming myself has occurred to me . 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
[2025-04-10 12:42] LABS: Hematocrit 41.8 % (37.0-47.0); Hemoglobin 14.2 g/dL (12.0-15.0); Immature Granulocyte Percent A 0.2 % (0-0.5); Lymphocytes Absolute Auto 1.09 K/mm3 (0.9-3.2); Mean Corpuscular HGB Conc 34.0 g/dl (32-36); Mean Corpuscular Hemoglobin 28.9 pg (26-34); Mean Corpuscular Volume 85.0 fl (80-100); Nucleated Red Blood Cells Absolute Auto 0.000 K/mm3 (0.0-0.012); Nucleated Red Blood Cells Perc 0.0 % (0.0-0.2); Platelet Count Result 297 k/mm3 (150-375); Red Blood Count 4.92 M/mm3 (4.2-5.4); White Blood Count 5.8 K/mm3 (4.5-10.0)
[2025-04-10 13:01] LABS: Alanine Aminotransferase 17 U/L (6-35); Albumin Level 4.6 g/dL (3.5-5.1); Alkaline Phosphatase 90 U/L (38-126); Anion Gap 10 mmol/L (4-12); Aspartate Amino Transferase 32 U/L (14-36); Bilirubin,Total 0.5 mg/dL (0.2-1.3); Blood Urea Nitrogen 11 mg/dL (7-17); Calcium 9.5 mg/dL (8.4-10.2); Carbon Dioxide 25 mmol/L (22-30); Chloride 99 mmol/L (98-107); Estimated CRCL calculation 69 ml/min; Estimated Glomerular Filt Rate > 60; Glucose 74 mg/dL (65-110); Lipase 67 U/L (23-300); Potassium 4.0 mmol/L (3.4-5.0); Sodium 134 mmol/L (137-145); Total Protein 8.1 g/dL (6.3-8.2)
[2025-04-10 14:01] LABS: Influenza A QL RT-PCR Negative (Negative); Influenza B QL RT-PCR Negative (Negative); RSV RNA, RT-PCR Negative (Negative); SARS-CoV-2 RNA PCR Negative (Negative)
--- NOTE | 2025-04-10 14:50 | PC.NURSE ---
patient ate 4 crackers and drank some white soda. now feeling worse. now having nausea and more diarrhea.
[2025-04-10 15:05] VITALS: BP 122/73; PULSE 74; RESP 16; TEMP 36.6; O2SAT 96
[2025-04-10] MEDS: PROCHLORPERAZINE EDISYLATE 10 MG/2 ML VIAL IV PUSH (15:05)
[2025-04-10 17:12] VITALS: BP 118/74; PULSE 76; RESP 15; TEMP 36.6; O2SAT 99
== END 2025-04-10 17:14 | disposition home or self-care (01) ==
PROVIDERS: Emergency Provider Emergency Medicine
DX: K52.9 Noninfective gastroenteritis and colitis, unspecified (principal); F41.9 Anxiety disorder, unspecified; Z79.3 Long term (current) use of hormonal contraceptives
CPT/HCPCS: 36415; 74177; 80053; 81025; 83690; 85025; 87637; 96361; 96374; 96375; 99284; J0780; J1200; J2405; J7030; Q9967